=== PATIENT | male | born 1970 | race Two or more races ===

== ENCOUNTER 2017-09-06 15:27 | Emergency (ER) | payer OTHER ==
[~2017-09-06] VITALS: Ht 162.6 cm; Wt 82.6 kg
[2017-09-06 15:39] VITALS: BP 136/77
--- NOTE | 2017-09-06 17:50 | Emergency Room Report ---
History of Present Illness General Chief Complaint: Lower Back Pain or Injury Source: Patient Present Illness HPI 47-year-old male presents to the emergency department complaining of localized 8 /10 in severity right-sided low back pain with intermittent radiation down into the posterior right thigh with certain movements. Patient states that he is just finished working several hours in a bent over position. Patient states that he usually wears a lumbar belt and has had intermittent back pain in the past. Patient denies acute onset of pain denies hematuria denies. Denies abdominal pain, he denies midline spinal pain,neck pain/stiffness or recent trauma or fall. Denies weight loss, night sweats, hx of cancer, or recent spinal procedures. Denies numbness tingling or loss of sensation or gross motor movements of the extremities, incontinence of bowel or bladder. Denies CP, Palpitations, LOC, AMS, dizziness, Changes in Vision, Sensation, paresthesias, or a sudden severe headache. Allergies: Coded Allergies: No Known Allergies (Unverified , 09/06/17) Patient History Past Medical History: see triage record Past Surgical History: none Pertinent Family History: none Social History: Reports: smoking Immunizations: UTD Reviewed Nursing Documentation: PMH: Agreed, PSxH: Agreed Nursing Documentation-PMH Past Medical History: No Stated History Review of Systems All Other Systems: negative except mentioned in HPI Physical Exam Vital Signs Date Time Temp Pulse Resp B/P (MAP) Pulse Ox O2 Delivery O2 Flow Rate FiO2 09/06/17 15:39 97.3 64 18 136/77 97 Room Air Sp02 EP Interpretation: reviewed, normal General Appearance: no apparent distress, alert, GCS 15, non-toxic Head: normocephalic, atraumatic Eyes: bilateral eye normal inspection, bilateral eye PERRL ENT: hearing grossly normal, normal voice Neck: full range of motion, supple/symm/no masses Respiratory: lungs clear, normal breath sounds Cardiovascular #1: regular rate, rhythm, no edema, normal capillary refill Gastrointestinal: normal bowel sounds, non tender, soft, no guarding, no rebound Rectal: deferred Genitourinary: normal inspection, no CVA tenderness Musculoskeletal: back normal, gait/station normal, normal range of motion, tender - Right paraspinal TTP in the lumbar musculature, no midline spinous process Tenderness, no step offs noted, no obvious deformity, FROM with pain upon flexion, Neurologic: alert, oriented x3, responsive, motor strength/tone normal, sensory intact, cerebellar normal, normal gait, speech normal Psychiatric: judgement/insight normal, memory normal, mood/affect normal Skin: normal color, no rash, warm/dry, well hydrated Medical Decision Making PA Attestation Dr. Chou is my supervising Physician whom patient management has been discussed with. Diagnostic Impression: Primary Impression: Strain of lumbar paraspinous muscle Qualified Codes: S39.012A - Strain of muscle, fascia and tendon of lower back , initial encounter ER Course 47-year-old male presents to the emergency department complaining of localized 8 /10 in severity right-sided low back pain with intermittent radiation down into the posterior right thigh with certain movements. Patient states that he is just finished working several hours in a bent over position. Patient states that he usually wears a lumbar belt and has had intermittent back pain in the past. Patient denies acute onset of pain denies hematuria denies. Denies abdominal pain, he denies midline spinal pain,neck pain/stiffness or recent trauma or fall. Denies weight loss, night sweats, hx of cancer, or recent spinal procedures. Denies numbness tingling or loss of sensation or gross motor movements of the extremities, incontinence of bowel or bladder. Denies CP, Palpitations, LOC, AMS, dizziness, Changes in Vision, Sensation, paresthesias, or a sudden severe headache. Ddx considered but are not limited to Fracture, dislocation, contusion, epidural abscess, Sprain/Strain/Spasm Vital signs: are WNL, pt. is afebrile H&PE are most consistent with sciatica -Pt. able to tolerate straight leg raise, pt. has FROM with exacerbation of pain with flexion forward. normal gait, no LE weakness, NVI ORDERS: X-ray not required at this time, no spinous process tenderness ED INTERVENTIONS: IM Toradol 20mg. -d/w pt. conservative treatment, and to follow up with a primary care provider. pt given a list of primary care clinics for follow up. d/w pt. to return to the ED with worsening or new symptoms. DISCHARGE: At this time pt. is stable for d/c to home. Will provide printed patient care instructions, and any necessary prescriptions. Care plan and follow up instructions have been discussed with the patient prior to discharge. Last Vital Signs Date Time Temp Pulse Resp B/P (MAP) Pulse Ox O2 Delivery O2 Flow Rate FiO2 09/06/17 15:39 97.3 64 18 136/77 97 Room Air Disposition: HOME, SELF-CARE Condition: Stable Scripts Carisoprodol* (SOMA*) 350 Mg Tablet 350 MG PO HS, #1 TAB Prov: Antoinette Salinas 09/06/17 Cyclobenzaprine Hcl* (FLEXERIL*) 10 Mg Tablet 10 MG ORAL THREE TIMES A DAY for 7 Days, #21 TAB Prov: Antoinette Salinas 09/06/17 Ibuprofen* (MOTRIN*) 600 Mg Tablet 600 MG ORAL THREE TIMES A DAY, #30 TAB 0 Refills Prov: Antoinette Salinas 09/06/17 Referrals: NOT CHOSEN IPA/MD,REFERRING (PCP) Departure Forms: Return to Work Return to Work Date: Sep 08, 2017 Work Restrictions: No Heavy Lifting, No Prolonged Standing Other Restrictions: light duty x 1 week. no heavy lifting. Return to Full Activity: Sep 16, 2017 Patient Instructions: Lumbosacral Strain Additional Instructions: Take medications as directed. Follow up with a Primary Care Provider in 3 days, even if your symptoms have resolved. --Please review list of primary care clinics, if you do not already have a primary care provider Return sooner to ED if new symptoms occur, or current symptoms become worse. Do not drink alcohol, drive, or operate heavy machinery while taking Muscle Relaxers as this may cause drowsiness. - Please note that this Emergency Department Report was dictated using [employer] care professional technology software, occasionally this can lead to erroneous entry secondary to interpretation by the dictation equipment. Antoinette Salinas Sep 06, 2017 17:50
[2017-09-06] MEDS ORDERED: IBUPROFEN600 MG ORAL (17:51)
[2017-09-06] MEDS ORDERED: CYCLOBENZAPRINE10 MG ORAL (17:51)
[2017-09-06] MEDS ORDERED: SOMA350 MG PO (17:51)
[2017-09-06] MEDS ORDERED: Ketorolac 60mg Inj IM ONE (18:00)
[2017-09-06 18:40] VITALS: BP 139/82
== END 2017-09-06 18:45 | disposition home or self-care (01) ==
LOC: EMR 17:36
DX: S39.012A Strain of muscle, fascia and tendon of lower back, initial encounter (principal); X50.1XXA Overexertion from prolonged static or awkward postures, initial encounter; Y92.512 Supermarket, store or market as the place of occurrence of the external cause; Y99.0 Civilian activity done for income or pay; F17.200 Nicotine dependence, unspecified, uncomplicated
CPT/HCPCS: 99284